=== PATIENT | male | born 1960 | race Two or more races ===

== ENCOUNTER 2020-02-07 09:47 | Emergency (ER) | payer OTHER, SELFPAY ==
[~2020-02-07] VITALS: Ht 175.3 cm; Wt 97.5 kg
[2020-02-07 09:54] VITALS: BP 124/89
--- NOTE | 2020-02-07 10:02 | NUR ---
PT CC REPORTED TO DR. SILVA WHO STATES OKAY TO PUT PT IN TENT FOR NOW. NO ISO ROOMS AVAIL AT THIS TIME
--- NOTE | 2020-02-07 10:57 | NUR ---
PER NAYELI WAHL TO PLACE PT IN BED 08; IS IN BED 09 AND PT AND HAVE SIMILAR SYMPTOMS. NEED BED DUE TO CXR, BUT NO OTHER ISO ROOMS AVAILABLE.
--- NOTE | 2020-02-07 11:00 | NUR ---
PATIENT PRESENTS TO ED WITH SORE THROAT, COUGH, WATERY DIARRHEA, AND MILD ABD PAIN. DENIES N/V, F/C, OR SOB. SKIN IS PINK/WARM/DRY; AAOX4 WITH EVEN AND STEADY GAIT; LUNGS CLEAR BL; HR EVEN AND REGULAR; PATIENT STATES PAIN OF 2/10 AT THIS TIME; VSS; PATIENT POSITIONED FOR COMFORT IN CHAIR. ER MD MADE AWARE OF PT STATUS.
--- NOTE | 2020-02-07 11:00 | NUR ---
Note undone in EDM - 02/07/20 at 1141 by [facility] PATIENT PRESENTS TO ED WITH MILD ABD PAIN. DENIES N/V, F/C, OR SOB. SKIN IS PINK/WARM/DRY; AAOX4 WITH EVEN AND STEADY GAIT; LUNGS CLEAR BL; HR EVEN AND REGULAR; PATIENT STATES PAIN OF 2/10 AT THIS TIME; VSS; PATIENT POSITIONED FOR COMFORT IN CHAIR. ER MADE AWARE OF PT STATUS.
--- NOTE | 2020-02-07 11:08 | NUR ---
Covid swab obtained at bedside and sent to the lab.
[2020-02-07 13:30] VITALS: BP 120/85
--- NOTE | 2020-02-07 13:30 | NUR ---
Patient discharged with v/s stable. Written and verbal after care instructions given and explained. Patient alert, oriented and verbalized understanding of instructions. Ambulatory with steady gait. All questions addressed prior to discharge. ID band removed. Patient advised to follow up with PMD. Rx of Z-PACK and Promethazine Hydrochloride/Dextromethorphan given. Patient educated on indication of medication including possible reaction and side effects. Opportunity to ask questions provided and answered.
--- NOTE | 2020-02-10 16:45 | NUR ---
Positive Covid results received from lab-copy sent to Drew Krishnan and Mirela
== END 2020-02-07 13:30 | disposition home or self-care (01) ==
LOC: EEVIPCON 09:47 → MED 09:47
DX: U07.1 COVID-19 (principal); R05 Cough; I10 Essential (primary) hypertension; R19.7 Diarrhea, unspecified
CPT/HCPCS: 36600; 71045; 82803; 99284; Q0092; U0003